=== PATIENT | male | born 1960 | race Caucasian/White ===

== ENCOUNTER → 2017-11-27 11:48 | Outpatient (CLI) | payer OTHER, SELFPAY ==
[2017-11-27 14:02] LABS: Absolute Lymphocyte Count 1.27 X10^3/ul (0.83-4.51); Absolute Neutrophil Count 3.4 X10^3/uL (2.0-7.7); Basophil# 0.01 X10^3/uL; Basophil% 0.2 % (0-1); Eosinophil# 0.14 X10^3/uL; Eosinophils% 2.6 % (0-5); Hematocrit 41.7 % (40-54); Hemoglobin 14.6 g/dl (13.0-16.5); Lymphocyte # 1.27 X10^3/ul (4.0); Lymphocyte % 23.9 % (19-41); Mean Corpuscular Hgb 31.7 pg (27.0-32.0); Mean Corpuscular Volume 90.7 fL (80-94); Mean Platelet Vol. 8.8 fl (6.2-12.0); Monocyte# 0.48 X10^3/uL; Neutrophil # 3.39 X10^3/uL (2.7-7.7); Neutrophil % 63.9 % (47-70); Platelet Count 263 K/mm3 (150-450); RBC Distribution Width SD 39.4 fl (35.1-43.9); White Blood Count 5.3 K/mm3 (4.4-11.0)
[2017-11-27 14:03] LABS: POSITIVE COUNT NO; POSITIVE DIFFERENTIAL NO; POSITIVE MORPHOLOGY NO
[2017-11-27 14:52] LABS: AST(SGOT) 21 U/L (15-37); Alanine Aminotransfer ALT/SGPT 26 U/L (16-61); Albumin, Serum 3.7 g/dL (3.2-5.0); Alkaline Phosphatase 59 U/L (45-117); Anion Gap 9 (5-15); BUN 16 mg/dL (7-18); BUN/Creat Ratio 17.4 RATIO (10-20); Calcium,Total 8.5 mg/dL (8.5-10.1); Chloride 105 mmol/L (98-107); Cholesterol 208 mg/dL (200); Creatinine, Serum 0.92 mg/dL (0.70-1.30); EST Glomerular Filtration Rate 90 mL/min (>60); Est Glom Filt Rate - Afr Amer 109 mL/min (>60); Globulin 3.8 g/dL (2.2-4.2); Glucose 95 mg/dL (74-106); High Density Lipoprotein 57 mg/dL; Potassium 3.8 mmol/L (3.5-5.1); Protein, Total 7.5 g/dL (6.4-8.2); Sodium Level 139 mmol/L (136-145); Thyroid Stim Hormone (TSH) 3.29 uIU/mL (0.358-3.74); Triglycerides 78 mg/dL; Very Low Density Lipoprotein 16 mg/dL (5-40)
[2017-11-27 15:00] LABS: Hemoglobin A1c 5.5 % (4.2-6.3)
== END ==
PROVIDERS: Visit Provider Family Medicine
DX: Z13.220 Encounter for screening for lipoid disorders (principal)
CPT/HCPCS: 36415; 80053; 80061; 83036; 84443; 85025

== ENCOUNTER → 2017-12-25 13:42 | Outpatient (CLI) | payer OTHER, SELFPAY ==
--- NOTE | 2017-12-25 09:57 | ECHOD_ITS ---
Reason For Study: Murmur Procedure This was a 2D Doppler, Color Flow transthoracic echocardiogram. Exam performed in department. Left Ventricle Normal size and thickness. The estimated ejection fraction is 65 %. Normal diastology for age. No regional wall motion abnormalities noted. Right Ventricle Mildly dilated right ventricle. Normal systolic function. Atria Normal left atrium. Normal right atrium. Normal atrial septum. Mitral Valve Mild diffuse mitral valve thickening. Mild (1+) mitral valve insufficiency. Tricuspid Valve Normal tricuspid valve. Trivial tricuspid valve insufficiency. Right ventricular systolic pressure estimated to be 26 mmHg. Aortic Valve Trisinus/trileaflet aortic valve. Moderate focal aortic valve thickening. Mild aortic stenosis. Trivial aortic valve insufficiency. Pulmonic Valve Normal pulmonic valve. Great Vessels Normal aortic root. Normal arch. Normal inferior vena cava. Inferior vena cava collapse with sniff. MMode/2D Measurements & Calculations LVIDd: 4.5 cm IVSd: 1.0 cm LVOT diam: 2.0 cm LVIDs: 2.4 cm LVPWd: 1.1 cm LVOT area: 3.1 cm2 RVDd: 4.1 cm FS: 47.4 % Ao root diam: 3.8 cm LAV(MOD-bp): 59.3 ml LA dimension: 3.5 cm LAV(MOD-bp) Indexed: 30.3 ml/m2 LA A4 area: 19.3 cm2 LAV(MOD-sp2): 65.0 ml LAV(MOD-sp4): 55.6 ml RA A4 area: 14.5 cm2 Time Measurements MV dec time: 0.20 sec Doppler Measurements & Calculations MV E max rodrigo: 110.7 cm/sec Lat Peak E' Rodrigo: 10.0 cm/sec Med Peak E' Rodrigo: 9.6 cm/sec MV A max rodrigo: 83.8 cm/sec E/E' lat: 11.0 E/E' med: 11.6 MV E/A: 1.3 MV V2 max: 111.9 cm/sec Ao V2 max: 227.4 cm/sec AI max rodrigo: 436.4 cm/sec MV max P.0 mmHg Ao max P.7 mmHg AI max P.2 mmHg MV V2 mean: 56.6 cm/sec Ao V2 mean: 150.4 cm/sec AI dec slope: 319.2 cm/sec2 MV mean P.6 mmHg Ao mean P.5 mmHg AI P1/2t: 400.4 msec MV V2 VTI: 35.0 cm Ao V2 VTI: 52.7 cm MVA(VTI): 2.3 cm2 JANES(I,D): 1.5 cm2 JANES(V,D): 1.5 cm2 LV V1 max: 110.7 cm/sec SV(LVOT): 79.0 ml PA V2 max: 116.3 cm/sec LV V1 max P.9 mmHg LV V1 mean P.2 mmHg LV V1 mean: 68.0 cm/sec LV V1 VTI: 25.2 cm TR max rodrigo: 229.0 cm/sec TR max P.0 mmHg Interpretation Summary The estimated ejection fraction is 65 %. Normal diastology for age. Mildly dilated right ventricle. Mild (1+) mitral valve insufficiency. Trivial tricuspid valve insufficiency. Right ventricular systolic pressure estimated to be 26 mmHg. Mild aortic stenosis. There is no comparison study available. Ordering Physician: Ronen Garibay Referring Physician: Ronen Garibay Performed By: Reinier Wilkins RCS
--- NOTE | 2017-12-25 13:42 | DT_ITS ---
This patient was seen during an EMR downtime December 25, 2017 - January 01, 2018. This patient may have a combination of paper and electronic documentation or all paper documentation. All documentation is viewable within the e-chart portion of [facility] for each patient visit.
== END ==
PROVIDERS: Family Provider Family Medicine; PCP Family Medicine; Visit Provider Family Medicine
DX: R01.1 Cardiac murmur, unspecified (principal)
CPT/HCPCS: 93306

== ENCOUNTER 2021-08-19 14:18 | Outpatient (CLI) | payer OTHER, SELFPAY ==
[2021-08-19 18:01] LABS: Creatinine, Serum 0.92 mg/dL (0.70-1.30); EST Glomerular Filtration Rate 89 mL/min (>60); Est Glom Filt Rate - Afr Amer 107 mL/min (>60)
== END 2021-08-19 23:59 | disposition short-term general hospital (02) ==
LOC: MTLAB 14:21
PROVIDERS: PCP Family Medicine; Referring Provider Specialist; Visit Provider Specialist
DX: M16.12 Unilateral primary osteoarthritis, left hip (principal); D16.22 Benign neoplasm of long bones of left lower limb
CPT/HCPCS: 36415; 82565